=== PATIENT | female | born 2000 ===

== ENCOUNTER → 2024-02-21 13:46 | Outpatient (CLI) | payer OTHER, SELFPAY ==
[2024-02-21 15:36] LABS: Urine N gonorrhoeae NOT DETECTED
[2024-02-21 15:37] LABS: Urine Chlamydia NOT DETECTED
== END ==
PROVIDERS: Visit Provider Registered Nurse
DX: N94.818 Other vulvodynia (principal); N94.9 Unspecified condition associated with female genital organs and menstrual cycle
CPT/HCPCS: 87210; 87491; 87591